=== PATIENT | male | born 1955 | race Caucasian/White ===

== ENCOUNTER 2021-09-17 20:21 | Emergency (ER) | payer MEDICARE, OTHER ==
[2021-09-17] MEDS ORDERED: Sodium Chloride 0.9% 10 ML Syringe FLUSH PRN (20:32)
[2021-09-17] MEDS ORDERED: Albuterol/Ipratropium 3.0-0.5 MG/3 ML Neb Soln NEB ONE (20:34)
[2021-09-17] MEDS ORDERED: Dexamethasone 4 MG/ML SDV IVPUSH ONE (20:40)
[2021-09-17] MEDS ORDERED: Sodium Chloride 0.9% 500 ML IV SCH (20:45)
[2021-09-17] MEDS ORDERED: cefTRIAXone 1 GM Vial IVPUSH ONE (20:52)
[2021-09-17 21:17] LABS: CHLORIDE,CL 105 mEq/L (98-106); ESTIMATED GFR 84 mL/min (>=60); SODIUM,NA 142 mEq/L (136-145)
== END 2021-09-17 23:00 ==
LOC: CC.ED 20:21
DX: U07.1 COVID-19 (principal); J12.82 Pneumonia due to coronavirus disease 2019; R09.02 Hypoxemia; Z86.16 Personal history of COVID-19; Z88.8 Allergy status to other drugs, medicaments and biological substances; Z79.899 Other long term (current) drug therapy
CPT/HCPCS: 36415; 71045; 80053; 83605; 83735; 85025; 85379; 86140; 94640; 96361; 96374; 96375; 99284; 99285-25; J0696; J1100; J7030; J7620-GY

== ENCOUNTER 2022-01-15 15:35 | Emergency (ER) | payer MEDICARE, OTHER ==
[2022-01-15] MEDS ORDERED: Magnesium Sulfate/Water 2 GM in Premix Bag 1 BAG IV ONE (15:53)
[2022-01-15] MEDS ORDERED: Albuterol/Ipratropium 3.0-0.5 MG/3 ML Neb Soln NEB ONE (15:53)
[2022-01-15] MEDS ORDERED: Dexamethasone 4 MG/ML SDV IVPUSH ONE (15:53)
[2022-01-15] MEDS ORDERED: Azithromycin 250 MG Tab PO ONE (20:34)
[2022-01-15] MEDS ORDERED: Take Home: Azithromycin 250 MG, 2 Tab Pack PO ONE (20:35)
== END 2022-01-15 21:00 | disposition home or self-care (01) ==
LOC: CC.ED 15:35
DX: J45.901 Unspecified asthma with (acute) exacerbation (principal); E78.00 Pure hypercholesterolemia, unspecified; I10 Essential (primary) hypertension; Z88.8 Allergy status to other drugs, medicaments and biological substances; Z79.899 Other long term (current) drug therapy; Z20.822 Contact with and (suspected) exposure to COVID-19
CPT/HCPCS: 36415; 71045; 80053; 81003; 83735; 84484; 85025; 85379; 87804; 93005; 94640; 96365; 96366; 96375; 99285; A9270; J1100; J3475; U0002; J7620-GY

== ENCOUNTER 2022-01-20 20:20 | Inpatient (IN) | payer MEDICARE, OTHER ==
[2022-01-20] MEDS ORDERED: Sodium Chloride 0.9% 10 ML Syringe FLUSH PRN (20:39)
[2022-01-20] MEDS ORDERED: Sodium Chloride 0.9% 1,000 ML IV ONE (20:43)
[2022-01-20] MEDS ORDERED: Albuterol/Ipratropium 3.0-0.5 MG/3 ML Neb Soln NEB ONE (21:08)
[2022-01-20 21:20] LABS: PTT,PARTIAL THROMBOPLSTIN TIME 26.2 SEC (23.2-32.3)
[2022-01-20] MEDS ORDERED: Albuterol/Ipratropium 3.0-0.5 MG/3 ML Neb Soln NEB PRN ×2 (21:52→22:13)
[2022-01-20] MEDS ORDERED: Acetaminophen 325 MG Tab PO PRN ×2 (21:52→22:09)
[2022-01-20] MEDS ORDERED: Polyethylene Glycol 3350 Powder 17 GM Packet PO PRN ×2 (21:52→22:09)
[2022-01-20] MEDS ORDERED: Enoxaparin 40 MG/0.4 ML Syringe SUBCUT SCH (22:00)
[2022-01-20] MEDS ORDERED: Ondansetron 4 MG/2 ML SDV IV PRN (22:09)
[2022-01-20] MEDS ORDERED: Albuterol/Ipratropium 3.0-0.5 MG/3 ML Neb Soln NEB SCH (22:15)
[2022-01-20] MEDS: methylPREDNISolone Sodium Succinate 125 MG/2 ML SDV IVPUSH SCH (23:46)
[2022-01-20] MEDS: Albuterol/Ipratropium 3.0-0.5 MG/3 ML Neb Soln NEB SCH (23:46)
[2022-01-20] MEDS: Enoxaparin 40 MG/0.4 ML Syringe SUBCUT SCH (23:54)
[2022-01-21] MEDS: Albuterol/Ipratropium 3.0-0.5 MG/3 ML Neb Soln NEB SCH ×6 (03:50→23:59)
[2022-01-21] MEDS: methylPREDNISolone Sodium Succinate 125 MG/2 ML SDV IVPUSH SCH (05:25)
[2022-01-21] MEDS: Cholecalciferol (Vitamin D3) 25 MCG Tab PO SCH (07:44)
[2022-01-21] MEDS: Metoprolol Succinate 25 MG Tab.ER PO SCH (07:44)
[2022-01-21] MEDS ORDERED: Pantoprazole 40 MG Tab.CR PO PRN (08:31)
[2022-01-21] MEDS ORDERED: Sulfamethoxazole/Trimethoprim 800-160 MG Tab PO SCH (09:00)
[2022-01-21] MEDS ORDERED: Iopamidol 755 Mg/ML 100 ML Bottle IVPUSH ONE (09:07)
[2022-01-21] MEDS: Formoterol/Mometasone 200-5 MCG 8.8 GM Inhaler IH SCH ×2 (10:00→19:51)
[2022-01-21] MEDS: Montelukast 10 MG Tab PO SCH (19:54)
[2022-01-21] MEDS: Enoxaparin 40 MG/0.4 ML Syringe SUBCUT SCH (21:56)
[2022-01-22] MEDS: Albuterol/Ipratropium 3.0-0.5 MG/3 ML Neb Soln NEB SCH ×5 (04:03→19:16)
[2022-01-22] MEDS: Metoprolol Succinate 25 MG Tab.ER PO SCH (07:37)
[2022-01-22] MEDS: Cholecalciferol (Vitamin D3) 25 MCG Tab PO SCH (07:37)
[2022-01-22] MEDS: methylPREDNISolone Sodium Succinate 125 MG/2 ML SDV IVPUSH SCH (07:38)
[2022-01-22] MEDS ORDERED: Benzonatate 100 MG Cap PO PRN (09:54)
[2022-01-22] MEDS: Formoterol/Mometasone 200-5 MCG 8.8 GM Inhaler IH SCH ×2 (10:17→19:16)
[2022-01-22] MEDS: Montelukast 10 MG Tab PO SCH (19:16)
[2022-01-22] MEDS ORDERED: Docusate Sodium 100 MG Cap PO PRN (19:27)
[2022-01-22] MEDS ORDERED: PRAVASTATIN 20 MG PO SCH (20:00)
[2022-01-22] MEDS: Enoxaparin 40 MG/0.4 ML Syringe SUBCUT SCH (21:10)
[2022-01-22] MEDS: guaiFENesin 100 MG/5 ML Soln 5 ML UD Cup PO PRN (21:30)
[2022-01-23] MEDS: methylPREDNISolone Sodium Succinate 125 MG/2 ML SDV IVPUSH SCH (07:49)
[2022-01-23] MEDS: Cholecalciferol (Vitamin D3) 25 MCG Tab PO SCH (07:50)
[2022-01-23] MEDS: Metoprolol Succinate 25 MG Tab.ER PO SCH (07:50)
[2022-01-23] MEDS: Albuterol/Ipratropium 3.0-0.5 MG/3 ML Neb Soln NEB SCH ×3 (07:51→15:09)
[2022-01-23] MEDS: Formoterol/Mometasone 200-5 MCG 8.8 GM Inhaler IH SCH (09:55)
[2022-01-23] MEDS ORDERED: Docusate Sodium 100 MG Cap PO SCH (10:00)
[2022-01-23] MEDS: guaiFENesin 100 MG/5 ML Soln 5 ML UD Cup PO PRN (13:10)
[2022-01-23] MEDS ORDERED: Acetaminophen 500 MG Tab PO PRN (15:33)
[2022-01-23] MEDS ORDERED: Ondansetron 4 MG Tab.DIS PO PRN (15:56)
[2022-01-23] MEDS ORDERED: Albuterol 0.083% 2.5 MG/3 ML Neb Soln INH SCH (20:00)
== END 2022-01-23 16:00 | disposition swing bed (61) | DRG 197 ==
LOC: CC.ED 20:20 → UNDOADMIN 21:30 → CC.MS 21:30
PROVIDERS: ADMIT Nurse Practitioner Family; ATTEND Nurse Practitioner Family
DX: D86.0 Sarcoidosis of lung (principal); R09.02 Hypoxemia; J45.901 Unspecified asthma with (acute) exacerbation; Z20.822 Contact with and (suspected) exposure to COVID-19; E78.00 Pure hypercholesterolemia, unspecified; I10 Essential (primary) hypertension; Z87.01 Personal history of pneumonia (recurrent); Z88.8 Allergy status to other drugs, medicaments and biological substances; Z79.52 Long term (current) use of systemic steroids; Z79.899 Other long term (current) drug therapy; Z96.642 Presence of left artificial hip joint
CPT/HCPCS: 36415; 71046; 80053; 83605; 84484; 85025; 85379; 85610; 85730; 87804 ×2; 87807; 93005; 99285; J7030; U0002; 71275; 82784; 94640; 97110-GP; 97161-GP; A9270-GY; J1650; J2930; J7620-GY; Q9967

== ENCOUNTER 2022-01-23 16:00 | Inpatient (IN) | payer MEDICARE, OTHER ==
[2022-01-23] MEDS ORDERED: Pantoprazole 40 MG Tab.CR PO PRN (16:33)
[2022-01-23] MEDS ORDERED: Benzonatate 100 MG Cap PO PRN (16:33)
[2022-01-23] MEDS ORDERED: Acetaminophen 325 MG Tab PO PRN (16:33)
[2022-01-23] MEDS ORDERED: Docusate Sodium 100 MG Cap PO PRN (16:33)
[2022-01-23] MEDS ORDERED: Albuterol/Ipratropium 3.0-0.5 MG/3 ML Neb Soln NEB PRN (16:33)
[2022-01-23] MEDS ORDERED: Acetaminophen 500 MG Tab PO PRN (16:33)
[2022-01-23] MEDS ORDERED: Ondansetron 4 MG/2 ML SDV IV PRN (16:33)
[2022-01-23] MEDS ORDERED: Sodium Chloride 0.9% 10 ML Syringe FLUSH PRN ×2 (16:33)
[2022-01-23] MEDS ORDERED: Ondansetron 4 MG Tab.DIS PO PRN (16:33)
[2022-01-23] MEDS ORDERED: Polyethylene Glycol 3350 Powder 17 GM Packet PO PRN (16:33)
[2022-01-23] MEDS: Formoterol/Mometasone 200-5 MCG 8.8 GM Inhaler IH SCH (19:36)
[2022-01-23] MEDS: guaiFENesin 100 MG/5 ML Soln 5 ML UD Cup PO PRN (19:36)
[2022-01-23] MEDS: Albuterol/Ipratropium 3.0-0.5 MG/3 ML Neb Soln NEB SCH (19:36)
[2022-01-23] MEDS: Docusate Sodium 100 MG Cap PO SCH (19:36)
[2022-01-23] MEDS ORDERED: Albuterol 0.083% 2.5 MG/3 ML Neb Soln INH SCH (20:00)
[2022-01-23] MEDS ORDERED: Simvastatin 10 MG Tab PO SCH (20:00)
[2022-01-23] MEDS ORDERED: Enoxaparin 40 MG/0.4 ML Syringe SUBCUT SCH (20:00)
[2022-01-23] MEDS ORDERED: Montelukast 10 MG Tab PO SCH (20:00)
[2022-01-24] MEDS: Docusate Sodium 100 MG Cap PO SCH (07:43)
[2022-01-24] MEDS: Albuterol/Ipratropium 3.0-0.5 MG/3 ML Neb Soln NEB SCH ×3 (07:43→18:32)
[2022-01-24 07:57] VITALS: BP 125/73; PULSE 55
[2022-01-24] MEDS: Formoterol/Mometasone 200-5 MCG 8.8 GM Inhaler IH SCH (07:57)
[2022-01-24] MEDS ORDERED: Cholecalciferol (Vitamin D3) 25 MCG Tab PO SCH (08:00)
[2022-01-24] MEDS ORDERED: Metoprolol Succinate 25 MG Tab.ER PO SCH ×2 (08:00)
[2022-01-24] MEDS ORDERED: methylPREDNISolone Sodium Succinate 125 MG/2 ML SDV IVPUSH SCH (08:00)
[2022-01-24] MEDS ORDERED: Sulfamethoxazole/Trimethoprim 800-160 MG Tab PO SCH (09:00)
[2022-01-24] MEDS: guaiFENesin 100 MG/5 ML Soln 5 ML UD Cup PO PRN (10:16)
[2022-01-24] MEDS ORDERED: predniSONE 20 MG Tab PO SCH (12:00)
[2022-01-24] MEDS ORDERED: LORazepam 2 MG/ML Syringe IVPUSH ONE (14:42)
[2022-01-24 15:35] LABS: CORONAVIRUS COVID-19 NAA NEGATIVE (NEGATIVE); RESPIRATORY SYNCYTIAL VIR NAA NEGATIVE (NEGATIVE)
[2022-01-24] MEDS ORDERED: cefTRIAXone 1 GM Vial IVPUSH ONE (15:58)
[2022-01-24] MEDS ORDERED: Azithromycin 500 MG in Sodium Chloride 0.9% 250 ML IV SCH (16:00)
[2022-01-24] MEDS ORDERED: Sodium Chloride 0.9% 1,000 ML IV SCH (17:45)
== END 2022-01-24 18:30 | DRG 947 ==
LOC: CC.MS 16:00
PROVIDERS: ADMIT Nurse Practitioner Family; ATTEND Nurse Practitioner Family
DX: R53.81 Other malaise (principal); J18.9 Pneumonia, unspecified organism; D86.0 Sarcoidosis of lung; Z20.822 Contact with and (suspected) exposure to COVID-19
CPT/HCPCS: 0241U; 36415; 71045; 83605; 85025; 87040; 94640; A9270-GY; J0456; J0696; J1650; J2060; J7030; J7050; J7512; J7620-GY

== ENCOUNTER 2023-06-26 20:56 | Emergency (ER) | payer MEDICARE, OTHER ==
[2023-06-26] MEDS: Albuterol/Ipratropium 3.0-0.5 MG/3 ML Neb Soln NEB ONE (21:06)
[2023-06-26] MEDS: methylPREDNISolone Sodium Succinate 125 MG/2 ML SDV IVPUSH STA (21:13)
[2023-06-26] MEDS ORDERED: Albuterol/Ipratropium 3.0-0.5 MG/3 ML Neb Soln NEB ONE (21:13)
[2023-06-26] MEDS: Magnesium Sulfate/Water 2 GM in Premix Bag 1 BAG IV ONE (21:23)
[2023-06-26] MEDS: Sodium Chloride 0.9% 1,000 ML IV ONE (21:38)
[2023-06-26] MEDS: Succinylcholine 200 MG/10 ML MDV IVPUSH ONE ×2 (21:40→21:59)
[2023-06-26 21:41] LABS: BASOPHILS ABSOLUTE AUTO 0.05 10^3/uL (0.00-0.50); BASOPHILS PERCENT AUTO 0.3 % (0-1); EOSINOPHILS ABSOLUTE AUTO 0.03 10^3/uL (0.00-1.50); EOSINOPHILS PERCENT AUTO 0.2 % (0-6); HEMATOCRIT 45.8 % (42.0-52.0); HEMOGLOBIN 14.6 g/dL (14.0-18.0); IMMATURE GRAN ABSOLUTE AUTO 0.07 10^3/uL (0.00-0.49); IMMATURE GRAN PERCENT AUTO 0.4 % (0.0-4.9); LYMPHOCYTES ABSOLUTE AUTO 0.74 10^3/uL (0.60-5.00); LYMPHOCYTES PERCENT AUTO 3.7 % (24-44); MEAN CORPUSCULAR HEMOGLOBIN 29.7 pg (27.0-32.0); MEAN CORPUSCULAR HGB CONC 31.9 g/dL (32.0-36.0); MEAN CORPUSCULAR VOLUME 93.3 fL (83.0-97.0); MONOCYTES ABSOLUTE AUTO 0.99 10^3/uL (0.00-1.50); NEUTROPHILS PERCENT AUTO 90.4 % (41-71); PLATELET COUNT,PLT 479 10^3/uL (150-400); RED BLOOD CELL COUNT 4.91 x10^6/uL (4.50-6.00); WHITE BLOOD CELL COUNT,WBC 19.9 10^3/uL (4.0-11.0)
[2023-06-26 22:00] LABS: ALANINE AMINOTRANSFERASE,ALT 29 U/L (12-78); ALBUMIN 4.4 g/dL (3.4-5.0); ALKALINE PHOSPHATASE 101 U/L (46-116); ASPARTATE AMNIOTRANSFERASE,AST 25 U/L (15-37); BILIRUBIN TOTAL 0.5 mg/dL (0.0-1.0); BLOOD UREA NITROGEN,BUN 15 mg/dL (7-18); CALCIUM 9.8 mg/dL (8.4-10.1); CARBON DIOXIDE,CO2 26 mmol/L (21-32); CHLORIDE,CL 101 mEq/L (98-106); CREATININE 1.3 mg/dL (0.7-1.3); ESTIMATED GFR 60 mL/min (>=60); GLUCOSE RANDOM 163 mg/dL (75-99); MAGNESIUM 2.3 mg/dL (1.8-2.4); POTASSIUM,K 4.2 mEq/L (3.5-5.0); PROTEIN TOTAL,TP 8.5 g/dL (6.4-8.2); SODIUM,NA 140 mEq/L (136-145)
[2023-06-26 22:16] LABS: BASE EXCESS ARTERIAL -3.4 (-2.0-3.0); BICARBONATE,ARTERIAL 23.1 mm/L (22.0-26.0); O2 DELIVERY DEVICE NON REBR MASK; O2 SATURATION ARTERIAL 93 % (95-98); PCO2 ARTERIAL 47 mm/Hg0 (35-45); PO2 ARTERIAL 73 mm/Hg (80-100)
[2023-06-26] MEDS: Piperacillin/Tazobactam 4.5 GM in Sodium Chloride 0.9% 100 ML IV ONE (22:30)
[2023-06-26] MEDS: Acetaminophen 650 MG Supp RECTAL ONE (22:41)
[2023-06-26 22:43] LABS: APPEARANCE,URINE CLEAR (CLEAR); BILIRUBIN,URINE NEGATIVE (NEGATIVE); COLOR,URINE LIGHT YELLOW (YELLOW); GLUCOSE,URINE NEGATIVE (NEGATIVE); KETONES,URINE NEGATIVE (NEGATIVE); LEUKOCYTE ESTERASE,URINE NEGATIVE (NEGATIVE); NITRITE,URINE NEGATIVE (NEGATIVE); OCCULT BLOOD,URINE NEGATIVE (NEGATIVE); PH,URINE 5.5 (4.5-8.0); PROTEIN,URINE NEGATIVE (NEGATIVE); UROBILINOGEN,URINE 0.2 EU/dL (0.2-1.0)
[2023-06-26] MEDS: Albuterol 0.083% 2.5 MG/3 ML Neb Soln NEB ONE (23:34)
[2023-06-27] MEDS: Sodium Chloride 0.9% 1,000 ML IV ONE (00:12)
[2023-06-27] MEDS: Albuterol/Ipratropium 3.0-0.5 MG/3 ML Neb Soln ONE ×2 (03:06→04:18)
[2023-06-27] MEDS: Piperacillin/Tazobactam 4.5 GM Vial ONE (03:08)
[2023-06-27] MEDS: Sodium Chloride 0.9% 100 ML ONE (03:10)
[2023-06-27] MEDS: Etomidate 2 MG/ML 10 ML SDV IVPUSH ONE ×4 (03:26→04:34)
[2023-06-27] MEDS: Propofol 200 MG/20 ML SDV IVPUSH ONE ×3 (03:33→03:41)
[2023-06-27] MEDS: propofoL 100 ML ONE (03:45)
[2023-06-27] MEDS: propofoL 100 ML IV SCH (03:46)
[2023-06-27] MEDS: Vancomycin 1 GM SDV ONE (03:51)
[2023-06-27] MEDS: Acetaminophen 650 MG Supp ONE (03:51)
[2023-06-27] MEDS: Sodium Chloride 0.9% 1,000 ML ONE ×2 (03:52→03:59)
[2023-06-27] MEDS: Propofol 200 MG/20 ML SDV ONE ×2 (03:57→03:59)
[2023-06-27] MEDS: Succinylcholine 200 MG/10 ML MDV ONE (03:58)
[2023-06-27] MEDS: Rocuronium 50 MG/5 ML Vial ONE (03:58)
[2023-06-27] MEDS: Midazolam 1 MG/ML 2 ML SDV ONE (03:58)
[2023-06-27] MEDS: Sodium Chloride 0.9% 500 ML ONE (03:59)
[2023-06-27] MEDS: Magnesium Sulfate/Water 50 ML ONE (04:00)
[2023-06-27] MEDS: Midazolam 1 MG/ML 2 ML SDV IVPUSH ONE (04:21)
[2023-06-27] MEDS: Rocuronium 50 MG/5 ML Vial IVPUSH ONE ×2 (04:29→04:37)
[2023-06-27] MEDS: VANCOmycin 1.5 GM/300 ML 1.5 GM in Premix Bag 1 BAG IV ONE (04:45)
== END 2023-06-27 00:12 ==
LOC: CC.ED 20:56
DX: J96.90 Respiratory failure, unspecified, unspecified whether with hypoxia or hypercapnia (principal); J45.902 Unspecified asthma with status asthmaticus; D72.9 Disorder of white blood cells, unspecified; R50.9 Fever, unspecified
CPT/HCPCS: 31500; 36415; 36600; 51702; 71045; 80053; 81003; 82803; 83605; 83735; 84484; 85025; 86140; 87040; 93005; 93010; 94640; 96361; 96365; 96367; 96375; 99285; 99291; 99292; A9270; J0330; J2250; J2543; J2704; J2930; J3370; J3475; J3490; J7030; U0002; J7613-GY; J7620-GY